=== PATIENT | male | born 1960 | race Hispanic/Latino ===

== ENCOUNTER → 2024-07-14 | Outpatient (CLI) | payer OTHER ==
--- NOTE | 2024-07-14 11:07 | HMCIMG ---
MR HUMERUS LEFT WO HISTORY: Pain COMPARISON: None TECHNIQUE: MRI of the left humerus was performed utilizing multiple pulse sequences in axial, coronal and sagittal planes. Patient was not given contrast through intravenous route. FINDINGS: Mild increase in intensity is seen involving the superior lateral aspect of left shoulder. No acute displaced fracture is seen. No abnormal signal intensity is seen of the visualized bony structure or musculature. The triceps, biceps and brachialis muscles are grossly intact without abnormal signal intensity. A small amount of fluid is seen in the bicipital tendon sheath of right shoulder consistent with changes no ascites. IMPRESSION: 1. Findings suggestive of mild biceps tenosynovitis. The biceps, biceps and brachialis muscle appears to be grossly intact without abnormal signal intensity.
== END | disposition home or self-care (01) ==
LOC: RAH 07:52
PROVIDERS: ATTEND Family Medicine
DX: M79.622 Pain in left upper arm (principal)
CPT/HCPCS: 73218